=== PATIENT | male | born 1985 | race Hispanic/Latino ===

== ENCOUNTER 2016-12-12 08:35 | Outpatient (CLI) | payer OTHER ==
[~2016-12-12] VITALS: Ht 167.6 cm; Wt 73.5 kg
[2016-12-12] MEDS ORDERED: IRON65TA PO (08:47)
[2016-12-12] MEDS ORDERED: PENT500C PO (08:47)
[2016-12-12] MEDS ORDERED: diphenhydrAMINE 25 MG CAP PO ONE (10:00)
[2016-12-12] MEDS ORDERED: ACETAMINOPHEN TAB 650MG DOSE (2X325MG) PO ONE (10:00)
[2016-12-12] MEDS ORDERED: INFLIXIMAB BIOSIMILAR 400 MG in NS 210 ML IV ONE (10:00)
[2016-12-12] MEDS ORDERED: NS 1,000 ML IV SCH (10:00)
== END 2016-12-12 12:15 | disposition home or self-care (01) ==
LOC: M INFU 08:35
PROVIDERS: ATTEND Internal Medicine
DX: K50.10 Crohn's disease of large intestine without complications (principal); D64.9 Anemia, unspecified; Z79.899 Other long term (current) drug therapy
CPT/HCPCS: 96413; 96415; Q5102

== ENCOUNTER 2016-12-22 19:24 | Emergency (ER) | payer OTHER ==
[~2016-12-22] VITALS: Ht 167.6 cm; Wt 68.2 kg
[~2016-12-22 19:24] MED LIST: IRON65TA PO; PENT500C PO
[2016-12-22 19:28] VITALS: BP 108/69
[2016-12-22] MEDS ORDERED: sleeping pill PO (19:42)
[2016-12-22 20:33] LABS: MEAN CORPUSCULAR HEMOGLOBIN 23.4 pg (27.0-33.0); MEAN CORPUSCULAR HGB CONC 31.9 g/dl (32.0-36.5); WHITE BLOOD COUNT 10.8 10^3/uL (4.0-10.0)
[2016-12-22 20:42] LABS: MEAN CORPUSCULAR VOLUME 73.3 fl (80.0-96.0); RED CELL DISTRIBUTION WIDTH 23.2 % (11.5-14.5)
[2016-12-22] MEDS ORDERED: ALPRAZolam 0.25 MG TAB PO ONE (20:45)
[2016-12-22 20:46] LABS: ALBUMIN 4.3 GM/DL (3.2-5.2); ALBUMIN/GLOBULIN RATIO 1.43 (1.00-1.93); ALKALINE PHOSPHATASE 54 U/L (45-117); ALT/SGPT 40 U/L (12-78); ANION GAP 10 MEQ/L (8-16); BILIRUBIN,DIRECT 0.1 MG/DL (0.0-0.2); BILIRUBIN,TOTAL 0.6 MG/DL (0.2-1.0); BLOOD UREA NITROGEN 13 MG/DL (7-18); CARBON DIOXIDE LEVEL 21 MEQ/L (21-32); CHLORIDE LEVEL 108 MEQ/L (98-107); CREATININE FOR GFR 1.01 MG/DL (0.70-1.30); GLOMERULAR FILTRATION RATE > 60.0 (>60); GLUCOSE, FASTING 84 MG/DL (70-105); SODIUM LEVEL 139 MEQ/L (136-145); TOTAL PROTEIN 7.3 GM/DL (6.4-8.2)
[2016-12-22 20:52] LABS: AST/SGOT 27 U/L (15-37); FREE T4 1.64 NG/DL (0.76-1.46)
[2016-12-22 20:59] LABS: POTASSIUM SERUM 3.8 MEQ/L (3.5-5.1)
--- NOTE | 2016-12-23 11:42 | REP ---
REASON: Chest pain. PRIORS: None. FINDINGS: The superior mediastinal structures are midline. The cardiac silhouette is unremarkable in size, shape, and position. The diaphragmatic surfaces of the lungs are regular, and the costophrenic angles are clear. The pulmonary willson are clear. The imaged osseous structures are intact. IMPRESSION: There is no acute cardiopulmonary disease. Signed by Balta Horta DO 12/23/2016 10:20 A
--- NOTE | 2016-12-23 12:42 | ECGEPIP ---
Stationary ECG Study [facility] - ED Test Date: 2016-12-22 Pat Name: CADEN CANTOR Department: Room: - Gender: M [employer]: : 1985 Requested By: LILIANA KWAN Order Number: [id number] Reading MD: Paula Calle Measurements Intervals [place] Rate: 66 P: 32 SD: 168 QRS: -2 QRSD: 91 T: 30 QT: 420 QTc: 441 Interpretive Statements SINUS RHYTHM NSTTW ABNORMALITY ?U WAVE NO PRIOR FOR COMPARISON Electronically Signed On 12-23-2016 12:41:51 EDT by Paula Calle
== END 2016-12-22 22:30 | disposition home or self-care (01) ==
LOC: EDBD 19:24 → M ED 19:24
DX: F32.9 Major depressive disorder, single episode, unspecified (principal); F41.9 Anxiety disorder, unspecified; Z98.890 Other specified postprocedural states; Z90.49 Acquired absence of other specified parts of digestive tract
CPT/HCPCS: 36415; 71020; 80048; 80076; 82550; 82553; 84439; 84443; 85027; 85652; 86140; 93005; 99284; G0480

== ENCOUNTER 2016-12-26 10:17 | Outpatient (CLI) | payer OTHER ==
[~2016-12-26] VITALS: Ht 167.6 cm; Wt 73.6 kg
[~2016-12-26 10:17] MED LIST changes: +sleeping pill PO
[2016-12-26] MEDS ORDERED: ACETAMINOPHEN TAB 650MG DOSE (2X325MG) PO ONE (11:00)
[2016-12-26] MEDS ORDERED: INFLIXIMAB BIOSIMILAR 400 MG in NS 210 ML IV ONE (11:00)
[2016-12-26] MEDS ORDERED: diphenhydrAMINE 25 MG CAP PO ONE (11:00)
[2016-12-26] MEDS ORDERED: NS 1,000 ML IV SCH (11:00)
[2016-12-26] MEDS ORDERED: INFL10VL IV (14:39)
[2016-12-26] MEDS ORDERED: IRON INJECTIONS (14:39)
== END 2016-12-26 14:00 | disposition home or self-care (01) ==
LOC: M INFU 10:17
PROVIDERS: ATTEND Neuromusculoskeletal Medicine & OMM
DX: K50.10 Crohn's disease of large intestine without complications (principal); Z79.899 Other long term (current) drug therapy
CPT/HCPCS: 96413; 96415; Q5102

== ENCOUNTER 2017-02-06 07:00 | Outpatient (CLI) | payer OTHER ==
[~2017-02-06] VITALS: Ht 167.6 cm; Wt 73.6 kg
[~2017-02-06 07:00] MED LIST changes: +INFL10VL IV; +IRON INJECTIONS
[2017-02-06] MEDS ORDERED: inFLIXimab INJECTION 400 MG in NS 210 ML IV ONE (07:30)
[2017-02-06] MEDS ORDERED: NS 1,000 ML IV SCH (07:30)
[2017-02-06] MEDS ORDERED: diphenhydrAMINE 25 MG CAP PO ONE ×2 (07:30→09:30)
[2017-02-06] MEDS ORDERED: INFLIXIMAB BIOSIMILAR 400 MG in NS 210 ML IV ONE (07:57)
[2017-02-06] MEDS ORDERED: ACETAMINOPHEN TAB 650MG DOSE (2X325MG) PO ONE (09:30)
== END 2017-02-06 10:25 | disposition home or self-care (01) ==
LOC: M INFU 07:00 → EDUNIT# 07:00 → M INFU 10:25
PROVIDERS: ATTEND Internal Medicine
DX: K50.10 Crohn's disease of large intestine without complications (principal); Z79.899 Other long term (current) drug therapy
CPT/HCPCS: 96413; 96415; Q5102

== ENCOUNTER 2017-04-03 08:06 | Outpatient (CLI) | payer OTHER ==
[2017-04-03] MEDS: diphenhydrAMINE 50 MG CAP PO (08:45)
[2017-04-03] MEDS: ACETAMINOPHEN TAB 650MG DOSE (2X325MG) PO (08:45)
[2017-04-03] MEDS: NS 1,000 ML IV (08:53)
[2017-04-03] MEDS: INFLIXIMAB BIOSIMILAR 400 MG in NS 210 ML IV (08:53)
== END 2017-04-03 11:10 | disposition home or self-care (01) ==
LOC: M INFU 08:06
DX: K50.10 Crohn's disease of large intestine without complications (principal); Z79.899 Other long term (current) drug therapy
CPT/HCPCS: 96413

== ENCOUNTER → 2017-05-28 | Outpatient (REF) | payer OTHER | LOC: M SFHCLERA 15:22 | DX: J02.9 Acute pharyngitis, unspecified (principal) ==

== ENCOUNTER 2017-06-14 12:56 | Outpatient (CLI) | payer OTHER ==
[2017-06-14] MEDS: diphenhydrAMINE 25 MG CAP PO (14:00)
[2017-06-14] MEDS: NS 1,000 ML IV (14:08)
[2017-06-14] MEDS: inFLIXimab INJECTION 400 MG in NS 210 ML IV (14:08)
== END 2017-06-14 16:45 | disposition home or self-care (01) ==
LOC: M INFU 12:56
DX: K50.10 Crohn's disease of large intestine without complications (principal); D64.9 Anemia, unspecified; K44.9 Diaphragmatic hernia without obstruction or gangrene
CPT/HCPCS: J1745

== ENCOUNTER 2017-08-01 07:33 | Outpatient (CLI) | payer OTHER ==
[2017-08-01] MEDS: ACETAMINOPHEN 650 MG PO PO (08:11)
[2017-08-01] MEDS: NS 1,000 ML IV (08:12)
[2017-08-01] MEDS: FILTER 1.2 MICRON (ADULT TPN/MANNITOL/REMICADE) XX (08:12)
[2017-08-01] MEDS: inFLIXimab INJECTION 400 MG in NS 210 ML IV (08:27)
[2017-08-01] MEDS ORDERED: diphenhydrAMINE 25 MG CAP PO (09:00)
== END 2017-08-01 10:50 | disposition home or self-care (01) ==
LOC: M INFU 07:33
DX: K50.10 Crohn's disease of large intestine without complications (principal); K44.9 Diaphragmatic hernia without obstruction or gangrene; Z86.2 Personal history of diseases of the blood and blood-forming organs and certain disorders involving the immune mechanism; Z98.52 Vasectomy status
CPT/HCPCS: J1745

== ENCOUNTER 2017-09-26 13:24 | Outpatient (CLI) | payer OTHER ==
[2017-09-26] MEDS ORDERED: NS 1,000 ML IV (14:00)
[2017-09-26] MEDS: FILTER 1.2 MICRON (ADULT TPN/MANNITOL/REMICADE) XX (14:00)
[2017-09-26] MEDS: diphenhydrAMINE 25 MG CAP PO (14:00)
[2017-09-26] MEDS: ACETAMINOPHEN TAB 650MG DOSE (2X325MG) PO (14:10)
[2017-09-26] MEDS: inFLIXimab INJECTION 400 MG in NS 210 ML IV (14:34)
== END 2017-09-26 17:00 | disposition home or self-care (01) ==
LOC: M INFU 13:24
DX: K50.10 Crohn's disease of large intestine without complications (principal); Z79.899 Other long term (current) drug therapy
CPT/HCPCS: J1745

== ENCOUNTER 2017-11-21 08:40 | Outpatient (CLI) | payer OTHER ==
[2017-11-21] MEDS: diphenhydrAMINE 25 MG CAP PO (09:13)
[2017-11-21] MEDS: ACETAMINOPHEN TAB 650MG DOSE (2X325MG) PO (09:14)
[2017-11-21] MEDS: NS 1,000 ML IV (09:15)
[2017-11-21] MEDS: inFLIXimab INJECTION 400 MG in NS 210 ML IV (09:17)
[2017-11-21] MEDS ORDERED: FILTER 1.2 MICRON (ADULT TPN/MANNITOL/REMICADE) XX (10:00)
== END 2017-11-21 12:00 | disposition home or self-care (01) ==
LOC: M INFU 08:40
DX: K50.10 Crohn's disease of large intestine without complications (principal); Z90.49 Acquired absence of other specified parts of digestive tract
CPT/HCPCS: J1745

== ENCOUNTER 2018-01-16 09:11 | Outpatient (CLI) | payer OTHER ==
[2018-01-16] MEDS: ACETAMINOPHEN TAB 650MG DOSE (2X325MG) PO (09:40)
[2018-01-16] MEDS: diphenhydrAMINE 25 MG CAP PO (09:40)
[2018-01-16] MEDS: FILTER 1.2 MICRON (ADULT TPN/MANNITOL/REMICADE) XX (09:49)
[2018-01-16] MEDS: inFLIXimab INJECTION 400 MG in NS 210 ML IV (09:49)
[2018-01-16] MEDS ORDERED: NS 1,000 ML IV (10:00)
== END 2018-01-16 12:30 | disposition home or self-care (01) ==
LOC: M INFU 09:11
DX: K50.10 Crohn's disease of large intestine without complications (principal)
CPT/HCPCS: J1745

== ENCOUNTER 2018-02-28 13:16 | Outpatient (CLI) | payer OTHER ==
[~2018-02-28] VITALS: Ht 175.3 cm; Wt 77.1 kg
[2018-02-28 13:38] VITALS: BP 113/57
[2018-02-28] MEDS ORDERED: ACETAMINOPHEN 650MG PO PRIOR TO INFUSION PO ONE (14:00)
[2018-02-28] MEDS ORDERED: FILTER 1.2 MICRON (ADULT TPN/MANNITOL/REMICADE) XX ONE (14:00)
[2018-02-28] MEDS ORDERED: diphenhydrAMINE 50MG PO PRIOR TO INFUSION PO ONE (14:00)
[2018-02-28] MEDS ORDERED: inFLIXimab INJECTION 400 MG in NS 210 ML IV ONE (14:00)
[2018-02-28] MEDS ORDERED: NS 1,000 ML IV SCH (14:00)
[2018-02-28 14:15] VITALS: BP 104/69
[2018-02-28 16:15] VITALS: BP 111/66
[2018-02-28 16:40] VITALS: BP 118/69
== END 2018-02-28 16:40 | disposition home or self-care (01) ==
LOC: M INFU 13:16
PROVIDERS: ATTEND Internal Medicine
DX: K50.10 Crohn's disease of large intestine without complications (principal)
CPT/HCPCS: 96413; 96415; J1745

== ENCOUNTER 2018-04-25 12:19 | Outpatient (CLI) | payer OTHER ==
[2018-04-25] VITALS (8 sets, daily range): BP systolic 99–110; BP diastolic 56–66
[~2018-04-25] VITALS: Ht 175.3 cm; Wt 77.1 kg
[2018-04-25] MEDS ORDERED: inFLIXimab INJECTION 400 MG in NS 210 ML IV ONE (13:15)
[2018-04-25] MEDS ORDERED: diphenhydrAMINE 50MG PO PRIOR TO INFUSION PO ONE (13:15)
[2018-04-25] MEDS ORDERED: NS 1,000 ML IV SCH (13:15)
[2018-04-25] MEDS ORDERED: ACETAMINOPHEN 650MG PO PRIOR TO INFUSION PO ONE (13:15)
[2018-04-25] MEDS ORDERED: FILTER 1.2 MICRON (ADULT TPN/MANNITOL/REMICADE) XX ONE (13:15)
== END 2018-04-25 16:30 | disposition home or self-care (01) ==
LOC: M INFU 12:19
PROVIDERS: ATTEND Internal Medicine
DX: K50.10 Crohn's disease of large intestine without complications (principal)
CPT/HCPCS: 96413; 96415; J1745

== ENCOUNTER 2018-06-20 13:05 | Outpatient (CLI) | payer OTHER ==
[~2018-06-20] VITALS: Ht 167.6 cm; Wt 70.5 kg
[2018-06-20 13:12] VITALS: BP 130/72
[2018-06-20] MEDS ORDERED: inFLIXimab INJECTION 400 MG in NS 210 ML IV ONE (14:00)
[2018-06-20] MEDS ORDERED: FILTER 1.2 MICRON (ADULT TPN/MANNITOL/REMICADE) XX ONE (14:00)
[2018-06-20] MEDS ORDERED: NS 1,000 ML IV SCH (14:00)
[2018-06-20] MEDS ORDERED: ACETAMINOPHEN 650MG PO PRIOR TO INFUSION PO ONE (14:00)
[2018-06-20] MEDS ORDERED: INFLIXIMAB BIOSIMILAR 400 MG in NS 210 ML IV ONE (14:00)
[2018-06-20] MEDS ORDERED: diphenhydrAMINE 50MG PO PRIOR TO INFUSION PO ONE (14:00)
[2018-06-20 16:23] VITALS: BP 103/68
== END 2018-06-20 16:20 | disposition home or self-care (01) ==
LOC: M INFU 13:05
PROVIDERS: ATTEND Internal Medicine
DX: K50.10 Crohn's disease of large intestine without complications (principal)
CPT/HCPCS: 96413; 96415; Q5103

== ENCOUNTER 2018-08-01 12:59 | Outpatient (CLI) | payer OTHER ==
[~2018-08-01] VITALS: Ht 165.1 cm; Wt 70.9 kg
[2018-08-01 13:00] VITALS: BP 119/72
[2018-08-01] MEDS ORDERED: ACETAMINOPHEN 650MG PO PRIOR TO INFUSION PO ONE (13:30)
[2018-08-01] MEDS ORDERED: diphenhydrAMINE 50MG PO PRIOR TO INFUSION PO ONE (13:30)
--- NOTE | 2018-08-01 13:38 | HPEPDOC ---
General Date of Admission Attending Physician: SHREE CRUZ MD Chief Complaint The patient is a 33-year-old male admitted with a reason for visit of Crohns Disease. 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 Patient reports he had been anemic requiring transfusion and a colonoscopy for evaluation revealed Crohn's. He was started on Remicade therapy, initially every 8 weeks and now every 6 weeks and has been tolerating well. He reports an episode of bowel obstruction May 2018, which was treated at [place] at [facility]. Otherwise, he has had no problems. He reports abdominal discomfort more retrosternal, but denies diarrhea, nausea, vomiting, chills or fever. Home Medications Scheduled Infliximab Injection (Remicade) 100 Mg/10 Ml Vial, 100 MG IV DIRECTED, (Re ported) Miscellaneous Medications [Iron Injections] , (Reported) Allergies Coded Allergies: No Known Allergies (Unverified , 12/12/16) Past Medical History Medical History Crohn's disease Bowel obstruction Surgical History Bowel resection Colonoscopy Family History Father: Hypertension Mother: Breast cancer, ovarian cancer Social History * Smoker: Denies Alcohol: Denies Drugs: denies A-FIB/CHADSVASC A-FIB History Current/History of A-Fib/PAF?: No Current Oral Anticoagulant The: No Review of Systems Other systems A pertinent 10 point review of systems was completed, negative except as stated in the history of presenting illness. Physical Examination Other physical findings GENERAL: NAD SKIN : Warm, dry intact HEENT: Atraumatic, normocephalic, PERRL, moist mucous membrane CARDIOVASCULAR: Regular rate and rhythm, S1S2, no JVD, no edema, distal pulses + and palpable RESP: CTAB, no accessory muscle use noted ABDOMEN: BS+ non distended non tender MS: no joint deformities NEURO: Alert and oriented x 3, CN2-12 grossly intact PSYCH: no anxiety or agitation, appropriate mood and affect. Vital Signs Vital Signs Date Time Temp Pulse Resp B/P (MAP) Pulse Ox O2 Delivery O2 Flow Rate FiO2 08/01/18 13:00 97.6 68 18 119/72 (88) 100 Assessment/Plan Crohn's disease -Remicade infusion per protocol -Continue other medications with methotrexate, folic acid, vitamins, Claritin, align Plan / VTE VTE Prophylaxis Ordered?: No VTE Exclusion Mechanical Proph: Low Risk for VTE KOTA ANGULO August 01, 2018 13:38
[2018-08-01] MEDS ORDERED: METH2.5T48 PO (13:51)
[2018-08-01] MEDS ORDERED: FILTER 1.2 MICRON (ADULT TPN/MANNITOL/REMICADE) XX ONE (14:00)
[2018-08-01] MEDS ORDERED: NS 1,000 ML IV SCH (14:00)
[2018-08-01] MEDS ORDERED: inFLIXimab INJECTION 400 MG in NS 210 ML IV ONE (14:00)
[2018-08-01 14:55] VITALS: BP 112/69
== END 2018-08-01 14:55 | disposition home or self-care (01) ==
LOC: M INFU 12:59
PROVIDERS: ATTEND Nurse Practitioner Family
DX: K50.90 Crohn's disease, unspecified, without complications (principal); Z79.899 Other long term (current) drug therapy
CPT/HCPCS: 96413; J1745

== ENCOUNTER 2018-09-10 13:12 | Outpatient (CLI) | payer OTHER ==
[~2018-09-10] VITALS: Ht 165.1 cm; Wt 70.8 kg
[~2018-09-10 13:12] MED LIST changes: +METH2.5T48 PO
[2018-09-10 13:20] VITALS: BP 114/65
[2018-09-10] MEDS ORDERED: NS 1,000 ML IV SCH (13:45)
[2018-09-10] MEDS ORDERED: ACETAMINOPHEN 650MG PO PRIOR TO INFUSION PO ONE (13:45)
[2018-09-10] MEDS ORDERED: FILTER 1.2 MICRON (ADULT TPN/MANNITOL/REMICADE) XX ONE (13:45)
[2018-09-10] MEDS ORDERED: inFLIXimab INJECTION 400 MG in NS 210 ML IV ONE (13:45)
[2018-09-10] MEDS ORDERED: diphenhydrAMINE 50MG PO PRIOR TO INFUSION PO ONE (13:45)
[2018-09-10 16:00] VITALS: BP 109/72
[2018-09-10 16:15] VITALS: BP 111/66
== END 2018-09-10 16:15 | disposition home or self-care (01) ==
LOC: M INFU 13:12
PROVIDERS: ATTEND Internal Medicine Gastroenterology
DX: K50.90 Crohn's disease, unspecified, without complications (principal)
CPT/HCPCS: 96413; J1745

== ENCOUNTER 2018-10-22 12:42 | Outpatient (CLI) | payer OTHER ==
[~2018-10-22] VITALS: Ht 165.1 cm; Wt 70.9 kg
[2018-10-22 12:50] VITALS: BP 120/69
[2018-10-22] MEDS ORDERED: FILTER 1.2 MICRON (ADULT TPN/MANNITOL/REMICADE) XX ONE (13:00)
[2018-10-22] MEDS ORDERED: inFLIXimab INJECTION 400 MG in NS 210 ML IV ONE (13:00)
[2018-10-22] MEDS ORDERED: ACETAMINOPHEN 650MG PO PRIOR TO INFUSION PO ONE (13:00)
[2018-10-22] MEDS ORDERED: NS 1,000 ML IV SCH (13:00)
[2018-10-22] MEDS ORDERED: diphenhydrAMINE 50MG PO PRIOR TO INFUSION PO ONE (13:00)
[2018-10-22 14:45] VITALS: BP 118/73
== END 2018-10-22 14:50 | disposition home or self-care (01) ==
LOC: M INFU 12:42
PROVIDERS: ATTEND Internal Medicine Gastroenterology
DX: K50.90 Crohn's disease, unspecified, without complications (principal)
CPT/HCPCS: 96413; J1745

== ENCOUNTER 2018-12-05 10:38 | Outpatient (CLI) | payer OTHER, SELFPAY ==
[~2018-12-05] VITALS: Ht 167.6 cm; Wt 70.9 kg
[2018-12-05 10:40] VITALS: BP 106/64
[2018-12-05] MEDS ORDERED: inFLIXimab INJECTION 400 MG in NS 210 ML IV ONE (11:00)
[2018-12-05] MEDS ORDERED: ACETAMINOPHEN 650MG PO PRIOR TO INFUSION PO ONE (11:00)
[2018-12-05] MEDS ORDERED: diphenhydrAMINE 50MG PO PRIOR TO INFUSION PO ONE (11:00)
[2018-12-05] MEDS ORDERED: NS 1,000 ML IV SCH (11:00)
[2018-12-05] MEDS ORDERED: FILTER 1.2 MICRON (ADULT TPN/MANNITOL/REMICADE) XX ONE (11:00)
== END 2018-12-05 13:20 | disposition home or self-care (01) ==
LOC: M INFU 10:38
PROVIDERS: ATTEND Internal Medicine Gastroenterology
DX: K50.90 Crohn's disease, unspecified, without complications (principal)
CPT/HCPCS: 96413; J1745

== ENCOUNTER 2019-01-16 12:59 | Outpatient (CLI) | payer OTHER ==
[~2019-01-16] VITALS: Ht 198.1 cm; Wt 70.9 kg
[2019-01-16 13:05] VITALS: BP 114/83
[2019-01-16] MEDS ORDERED: FILTER 1.2 MICRON (ADULT TPN/MANNITOL/REMICADE) XX ONE (14:00)
[2019-01-16] MEDS ORDERED: NS 1,000 ML IV SCH (14:00)
[2019-01-16] MEDS ORDERED: ACETAMINOPHEN 650MG PO PRIOR TO INFUSION PO ONE (14:00)
[2019-01-16] MEDS ORDERED: diphenhydrAMINE 50MG PO PRIOR TO INFUSION PO ONE (14:00)
[2019-01-16] MEDS ORDERED: inFLIXimab INJECTION 400 MG in NS 210 ML IV ONE (14:00)
[2019-01-16 15:20] VITALS: BP 95/55
== END 2019-01-16 15:20 | disposition home or self-care (01) ==
LOC: M INFU 12:59
PROVIDERS: ATTEND Internal Medicine Gastroenterology
DX: K50.90 Crohn's disease, unspecified, without complications (principal)
CPT/HCPCS: 96413; J1745

== ENCOUNTER 2019-02-25 13:28 | Outpatient (CLI) | payer OTHER, SELFPAY ==
[~2019-02-25] VITALS: Ht 172.7 cm; Wt 70.9 kg
[2019-02-25 13:38] VITALS: BP 111/74
[2019-02-25] MEDS ORDERED: ACETAMINOPHEN 650MG PO PRIOR TO INFUSION PO ONE (14:00)
[2019-02-25] MEDS ORDERED: NS 1,000 ML IV SCH (14:00)
[2019-02-25] MEDS ORDERED: inFLIXimab INJECTION 400 MG in NS 210 ML IV ONE (14:00)
[2019-02-25] MEDS ORDERED: diphenhydrAMINE 50MG PO PRIOR TO INFUSION PO ONE (14:00)
[2019-02-25 15:15] VITALS: BP 104/68
== END 2019-02-25 15:15 | disposition home or self-care (01) ==
LOC: M INFU 13:28
PROVIDERS: ATTEND Internal Medicine Gastroenterology
DX: K50.90 Crohn's disease, unspecified, without complications (principal)
CPT/HCPCS: 96413; J1745

== ENCOUNTER 2019-04-14 12:05 | Outpatient (CLI) | payer OTHER, SELFPAY ==
[~2019-04-14] VITALS: Ht 172.7 cm; Wt 70.9 kg
[2019-04-14 12:14] VITALS: BP 113/69
[2019-04-14] MEDS ORDERED: NS 1,000 ML IV SCH (12:15)
[2019-04-14] MEDS ORDERED: ACETAMINOPHEN 650MG PO PRIOR TO INFUSION PO ONE (12:15)
[2019-04-14] MEDS ORDERED: diphenhydrAMINE 50MG PO PRIOR TO INFUSION PO ONE (12:15)
[2019-04-14] MEDS ORDERED: inFLIXimab INJECTION 400 MG in NS 210 ML IV ONE (12:15)
[2019-04-14 13:00] VITALS: BP 100/57
[2019-04-14 14:07] VITALS: BP 104/63
== END 2019-04-14 14:05 | disposition home or self-care (01) ==
LOC: M INFU 12:05
PROVIDERS: ATTEND Internal Medicine Gastroenterology
DX: K50.00 Crohn's disease of small intestine without complications (principal)
CPT/HCPCS: 96413; J1745

== ENCOUNTER 2019-05-26 13:07 | Outpatient (CLI) | payer OTHER ==
[~2019-05-26] VITALS: Ht 172.7 cm; Wt 70.8 kg
[2019-05-26] MEDS ORDERED: NS 1,000 ML IV SCH (14:00)
[2019-05-26] MEDS ORDERED: inFLIXimab INJECTION 400 MG in NS 210 ML IV ONE (14:00)
[2019-05-26] MEDS ORDERED: ACETAMINOPHEN 650MG PO PRIOR TO INFUSION PO ONE (14:00)
[2019-05-26] MEDS ORDERED: diphenhydrAMINE 50MG PO PRIOR TO INFUSION PO ONE (14:00)
== END 2019-05-26 15:25 | disposition home or self-care (01) ==
LOC: M INFU 13:07
PROVIDERS: ATTEND Internal Medicine Gastroenterology
DX: K50.90 Crohn's disease, unspecified, without complications (principal)
CPT/HCPCS: 96413; J1745

== ENCOUNTER 2019-07-07 13:06 | Outpatient (CLI) | payer OTHER ==
[~2019-07-07] VITALS: Ht 172.7 cm; Wt 70.8 kg
[2019-07-07] MEDS ORDERED: diphenhydrAMINE 50MG PO PRIOR TO INFUSION PO ONE (13:30)
[2019-07-07] MEDS ORDERED: ACETAMINOPHEN 650MG PO PRIOR TO INFUSION PO ONE (13:30)
[2019-07-07] MEDS ORDERED: NS 1,000 ML IV SCH (13:30)
[2019-07-07] MEDS ORDERED: inFLIXimab INJECTION 400 MG in NS 210 ML IV ONE (14:00)
== END 2019-07-07 15:00 | disposition home or self-care (01) ==
LOC: M INFU 13:06
PROVIDERS: ATTEND Internal Medicine Gastroenterology
DX: K50.90 Crohn's disease, unspecified, without complications (principal)
CPT/HCPCS: 96413; J1745

== ENCOUNTER 2019-08-18 12:04 | Outpatient (CLI) | payer OTHER ==
[~2019-08-18] VITALS: Ht 172.7 cm; Wt 70.9 kg
[2019-08-18 12:05] VITALS: BP 105/58
[2019-08-18] MEDS ORDERED: diphenhydrAMINE 50MG PO PRIOR TO INFUSION PO ONE (12:15)
[2019-08-18] MEDS ORDERED: ACETAMINOPHEN 650MG PO PRIOR TO INFUSION PO ONE (12:15)
[2019-08-18] MEDS ORDERED: NS 1,000 ML IV SCH (12:15)
[2019-08-18] MEDS ORDERED: inFLIXimab INJECTION 400 MG in NS 210 ML IV ONE (12:15)
[2019-08-18 12:33] VITALS: BP 105/58
[2019-08-18 12:48] VITALS: BP 148/72
[2019-08-18 13:40] VITALS: BP 110/63
== END 2019-08-18 13:55 | disposition home or self-care (01) ==
LOC: M INFU 12:04
PROVIDERS: ATTEND Internal Medicine Gastroenterology
DX: K50.918 Crohn's disease, unspecified, with other complication (principal)
CPT/HCPCS: 96413; J1745

== ENCOUNTER 2019-09-29 13:24 | Outpatient (CLI) | payer OTHER ==
[~2019-09-29] VITALS: Ht 172.7 cm; Wt 68.0 kg
[2019-09-29] MEDS ORDERED: ACETAMINOPHEN 650MG PO PRIOR TO INFUSION PO ONE (14:00)
[2019-09-29] MEDS ORDERED: NS 1,000 ML IV SCH (14:00)
[2019-09-29] MEDS ORDERED: inFLIXimab INJECTION 400 MG in NS 210 ML IV ONE (14:00)
[2019-09-29] MEDS ORDERED: diphenhydrAMINE 50MG PO PRIOR TO INFUSION PO ONE (14:00)
[2019-09-29 14:15] VITALS: BP 106/69
[2019-09-29 14:24] VITALS: BP 106/69
[2019-09-29 14:40] VITALS: BP 106/69
[2019-09-29 15:28] VITALS: BP 108/71
[2019-09-29 15:29] VITALS: BP 108/71
== END 2019-09-29 15:30 | disposition home or self-care (01) ==
LOC: M INFU 13:24
PROVIDERS: ATTEND Internal Medicine Gastroenterology
DX: K50.90 Crohn's disease, unspecified, without complications (principal)
CPT/HCPCS: 96413; J1745